=== PATIENT | male | born 1980 | race African-American/Black ===

== ENCOUNTER 2023-05-07 21:44 | Emergency (ER) | payer SELFPAY ==
[~2023-05-07 21:44] MED LIST: Iopamidol-370 76% 500 ML MDV (1 ML CHARGE) ONE
[2023-05-07] MEDS ORDERED: fentaNYL 50 mcg/mL 1 mL Vial ONE ×2 (21:53→22:10)
[2023-05-07 22:15] LABS: #Basophils 0.1 thou/uL (0.0-0.2); #Eosinphils 0.1 thou/uL (0.0-0.7); #Monocytes 1.7 thou/uL (0.11-0.59); #Neutrophils 15.5 thou/uL (1.40-6.50); %Basophils 0.4 % (0.0-1.0); %Eosinophils 0.5 % (0.0-10.0); %Lymphocytes 26.3 % (21.0-51.0); %Monocytes 7.3 % (0.0-10.0); %Neutrophils 64.7 % (42.0-75.0); Hematocrit 38.1 % (42.0-52.0); Hemoglobin 13.5 g/dL (14.0-18.0); Mean Corpuscular HGB CONC 35.4 g/dL (32.0-36.0); Mean Corpuscular Hemoglobin 30.6 pg (27.0-31.0); Mean Corpuscular Volume 86.4 fl (78.0-98.0); Mean Platelet Volume 10.7 fL (7.4-10.4); Platelet Count 275 10x3/uL (130-400); Red Blood Cell (RBC) Count 4.41 mill/uL (4.70-6.10); White Blood Cell (WBC) Count 23.9 10x3/uL (4.8-10.8)
[2023-05-07 22:27] LABS: INR-International Normal Ratio 1.1; PTT 26.2 sec (22.9-36.1)
[2023-05-07 22:41] LABS: ALT (SGPT) 20 U/L (8-55); AST (SGOT) 30 U/L (5-34); Alkaline Phosphatase 90 U/L (40-110); Anion Gap 15 mmol/L (10-20); BUN (Urea Nitrogen) 10 mg/dL (8.9-20.6); Bilirubin, Total 0.4 mg/dL (0.2-1.2); Calc. Creatinine Clearance 0 mL/min (70-130); Calcium 8.9 mg/dL (7.8-10.44); Carbon Dioxide 21 mmol/L (22-29); Chloride 104 mmol/L (98-107); Estimated GFR 68; Globulin 3.9 g/dL (2.4-3.5); Glucose 169 mg/dL (70-105); Potassium 3.3 mmol/L (3.5-5.1); Protein, Total 7.9 g/dL (6.0-8.3); Sodium 137 mmol/L (136-145)
[2023-05-07] MEDS ORDERED: Ketamine 50 MG/ML (10ML VIAL) ONE (22:54)
[2023-05-07 23:03] LABS: Bacteria/HPF None Seen HPF (None Seen); Bilirubin Negative (Negative); Blood, Urine 2+ (Negative); CAUTI Indications for Culture Urological Procedure; Clarity Clear (Clear); Glucose, Urine (Dipstick) Normal (Negative); Ketone, Urine Negative (Negative); Leukocyte Negative Leu/uL (Negative); Mucous/LPF Rare LPF (<2+); Nitrite Negative (Negative); Protein, Urine (Dipstick) 30 mg/dL (Neg-Trace); RBC/HPF Greater than 50 HPF (0-3); Squamous Epithelial 0-3 HPF (0-3); Urobilinogen Normal mg/dL (Less than 2); WBC/HPF 0-3 HPF (0-3)
[2023-05-07 23:05] LABS: Specific Gravity, Urine 1.047 (1.002-1.036)
[2023-05-07 23:07] LABS: Urine Culture Reflex Yes Yes
[2023-05-07] MEDS ORDERED: Boostrix 0.5 ML (Tdap) VIAL (>/=7 yrs of age) ONE (23:26)
[2023-05-07] MEDS ORDERED: cefTRIAXone (ROCEPHIN) 2 GM VIAL ONE (23:26)
== END 2023-05-08 01:03 | disposition short-term general hospital (02) ==
LOC: ERS 21:44
DX: S72.91XA Unspecified fracture of right femur, initial encounter for closed fracture (principal); S82.251A Displaced comminuted fracture of shaft of right tibia, initial encounter for closed fracture; S82.451A Displaced comminuted fracture of shaft of right fibula, initial encounter for closed fracture; S62.231A Other displaced fracture of base of first metacarpal bone, right hand, initial encounter for closed fracture; Z23 Encounter for immunization; V69.40XA Driver of heavy transport vehicle injured in collision with unspecified motor vehicles in traffic accident, initial encounter
CPT/HCPCS: 25680; 27502; 36415; 51702; 70450; 71045; 71260; 72125; 72170; 74177; 80053; 81001; 83605; 85025; 85610; 85730; 86850; 86900; 86901; 87086; 90471; 90715; 93005; 96365; 96375; G0390; J0696; J3010; Q9967

== ENCOUNTER 2024-07-31 21:31 | Emergency (ER) | payer SELFPAY ==
[2024-08-01 00:38] LABS: #Basophils 0.05 10x3/uL (0.0-0.2); %Basophils 0.6 % (0.0-1.0); %Eosinophils 0.8 % (0.0-10.0); %Lymphocytes 32.9 % (21.0-51.0); %Neutrophils 56.6 % (42.0-75.0); Hematocrit 36.4 % (42.0-52.0); Hemoglobin 12.3 g/dL (14.0-18.0); Mean Corpuscular HGB CONC 33.8 g/dL (32.0-36.0); Mean Corpuscular Hemoglobin 30.1 pg (27.0-31.0); Mean Platelet Volume 9.8 fL (7.4-10.4); Platelet Count 306 10x3/uL (130-400); RBC Distribution Width 14.6 % (11.5-14.5); Red Blood Cell (RBC) Count 4.09 mill/uL (4.70-6.10)
[2024-08-01 00:51] LABS: ALT (SGPT) 6 U/L (8-55); AST (SGOT) 16 U/L (5-34); Albumin 3.8 g/dL (3.5-5.0); Alkaline Phosphatase 105 U/L (40-110); Anion Gap 14 mmol/L (10-20); BUN (Urea Nitrogen) 13 mg/dL (8.9-20.6); Bilirubin, Total 0.2 mg/dL (0.2-1.2); CRP,High Sensitivity (Inhouse) 1.55 mg/dL (< or = 0.5); Calc. Creatinine Clearance 0 mL/min (70-130); Carbon Dioxide 20 mmol/L (22-29); Chloride 108 mmol/L (98-107); Estimated GFR 87; Globulin 4.3 g/dL (2.4-3.5); Glucose 121 mg/dL (70-105); Potassium 3.6 mmol/L (3.5-5.1); Protein, Total 8.1 g/dL (6.0-8.3); Sodium 138 mmol/L (136-145)
== END 2024-08-01 00:19 | disposition home or self-care (01) ==
LOC: ERS 21:31
DX: L76.82 Other postprocedural complications of skin and subcutaneous tissue (principal); F17.210 Nicotine dependence, cigarettes, uncomplicated
CPT/HCPCS: 36415; 80053; 85025; 86141; 99283